=== PATIENT | female | born 1940 | race Caucasian/White ===

== ENCOUNTER 2018-11-05 08:09 | Emergency (ER) | payer MEDICARE, OTHER ==
[2018-11-05 08:30] VITALS: TEMP 97.3; O2SAT 95
--- NOTE | 2018-11-05 08:33 | ED.PDOC ---
History of Present Illness - General Chief Complaint: Upper Extremity Injury Stated Complaint: fell and hit elblow Time Seen by Provider: 11/05/18 08:26 Source: patient Exam Limitations: no limitations - History of Present Illness Initial Comments: Monie Arroyo 78 y/o female came to er stating got up last night to go to bathroom and as she was going out of her room tripped on a door stopper and fell to the carpeted floor landing on her shoulder right.Had dull pain and extending right elbow.DENIES any injuries to HEAD,NECK,CHEST,HIPS,LEGS. Occurred: yesterday - night Pain - Upper Extremity: moderate: Elbow, right Method of Injury: fell Improving Factors: rest Worsening Factors: movement Associated Symptoms: pain Allergies/Adverse Reactions: Allergies NO KNOWN ALLERGY Allergy (Unverified 05/05/14 02:46) Home Medications: Ambulatory Orders Promethazine Tab [Phenergan Tablet] 25 mg PO Q6H PRN #6 tab 05/05/14 ALPRAZolam [Xanax] 0.25 mg PO DAILY 11/05/18 Acetaminophen W/ Codeine [Tylenol W/ CODEINE #3] 1 ea PO Q8HR PRN #14 11/05/18 Atorvastatin Calcium [Lipitor] 20 mg PO DAILY 11/05/18 Clopidogrel Bisulfate 75 mg PO DAILY 11/05/18 Digoxin 0.125 mg PO DAILY 11/05/18 Levothyroxine Sodium [Synthroid] 100 mcg PO DAILY 11/05/18 Lisinopril 5 mg PO DAILY 11/05/18 Metformin HCl 500 mg PO DAILY 11/05/18 Metoprolol Tartrate 50 mg PO DAILY 11/05/18 Omeprazole 20 mg PO DAILY 11/05/18 Spironolactone 25 mg PO DAILY 11/05/18 Tramadol HCl 50 mg PO PRN PRN 11/05/18 Venlafaxine HCl [Venlafaxine HCl ER] 150 mg PO DAILY 11/05/18 Zolpidem Tartrate 5 mg PO DAILY 11/05/18 Review of Systems - Review of Systems Musculoskeletal: States: joint pain - right elbow All other Systems: Reviewed and Negative, No Change from Baseline Past Medical History (General) - Patient Medical History Hx Stroke: Yes Hx Cardiac Disorders: Yes Hx Hypertension: Yes Hx Thyroid Disease: Yes Hx Diabetes: Yes Hx Gastroesophageal Reflux: Yes Hx Cancer: No Surgical History: cholecystectomy, other - hysterectomy - Vaccination History Hx Tetanus, Diphtheria Vaccination: Yes Hx Influenza Vaccination: Yes Hx Pneumococcal Vaccination: Yes Immunizations Up to Date: Yes - Social History Hx Tobacco Use: No Hx Alcohol Use: Yes - twice a year - Female History Patient is a Female of Child Bearing Age (10 -59 yrs old): No Patient : No Family Medical History - Family History Mother Living Status: Cause of : chf Hx Family Congestive Heart Failure: Yes Hx Family Hypertension: Yes Hx Family Diabetes: Yes Physical Exam - Physical Exam General Appearance: Alert, Comfortable, No apparent distress Eyes, Ears, Nose, Throat Exam: normal ENT inspection Neck: non-tender, full range of motion, supple, normal inspection Cardiovascular/Respiratory: regular rate, rhythm, no M/R/G, normal peripheral pulses, no JVD, normal breath sounds Back Exam: no CVA tenderness, no vertebral tenderness Shoulder Exam: non-tender, no evidence of injury Elbow/Forearm Exam: bone tenderness - right elbow, limited ROM - painful right, soft tissue tenderness Wrist Exam: normal inspection, no evidence of injury, normal ROM Hand Exam: normal inspection, non-tender, no evidence of injury Neuro/Tendon: normal sensation, normal motor functions, normal tendon functions, responds to pain Mental Status: alert, oriented x 3 Skin Exam: normal color, warm/dry Progress - Progress Progress: 11/05/18 08:36 Vital Signs 11/05/18 08:24 Temperature 97.3 F L Pulse Rate [ 73 Left] Respiratory 20 Rate Blood Pressure 132/77 [Left Arm] O2 Sat by Pulse 95 Oximetry 11/05/18 09:13 Discuss x-ray result with patient and advised to recheck with primary Md. - EKG/XRAY/CT XRAY: elbow - right-radial head fractureslightly displaced Departure - Departure Clinical Impression: Fall Qualifiers: Encounter type: initial encounter Qualified Code(s): W19.XXXA - Unspecified fall, initial encounter Radial head fracture, closed Qualifiers: Encounter type: initial encounter Fracture alignment: displaced Laterality: right Qualified Code(s): S52.121A - Displaced fracture of head of right radius, initial encounter for closed fracture Time of Disposition: 09:15 Disposition: Discharge to Home or Self Care Condition: Good Departure Forms: ED Discharge - Pt. Copy, Patient Portal Self Enrollment Instructions: DI for Elbow Fracture Referrals: Kira Ceballos MD [Primary Care Provider] - 1-2 Weeks Prescriptions: Acetaminophen W/ Codeine [Tylenol W/ CODEINE #3] 1 ea PO Q8HR PRN #14 PRN Reason: Pain Home Medications: Ambulatory Orders Promethazine Tab [Phenergan Tablet] 25 mg PO Q6H PRN #6 tab 05/05/14 ALPRAZolam [Xanax] 0.25 mg PO DAILY 11/05/18 Acetaminophen W/ Codeine [Tylenol W/ CODEINE #3] 1 ea PO Q8HR PRN #14 11/05/18 Atorvastatin Calcium [Lipitor] 20 mg PO DAILY 11/05/18 Clopidogrel Bisulfate 75 mg PO DAILY 11/05/18 Digoxin 0.125 mg PO DAILY 11/05/18 Levothyroxine Sodium [Synthroid] 100 mcg PO DAILY 11/05/18 Lisinopril 5 mg PO DAILY 11/05/18 Metformin HCl 500 mg PO DAILY 11/05/18 Metoprolol Tartrate 50 mg PO DAILY 11/05/18 Omeprazole 20 mg PO DAILY 11/05/18 Spironolactone 25 mg PO DAILY 11/05/18 Tramadol HCl 50 mg PO PRN PRN 11/05/18 Venlafaxine HCl [Venlafaxine HCl ER] 150 mg PO DAILY 11/05/18 Zolpidem Tartrate 5 mg PO DAILY 11/05/18 Additional Instructions: Follow up with primary Md 07 Nov 2018 for recheck;Ice pack to affected area 15 minutes 3 x a day during waking hours only for 3 days.
--- NOTE | 2018-11-05 09:02 | RAD ---
EXAM: XR Right Elbow Complete, 3 or More Views CLINICAL HISTORY: 78 years old and is Female; fall/pain TECHNIQUE: Frontal, lateral and oblique views of the right elbow. COMPARISON: No relevant prior studies available. FINDINGS: Limitations: None. Bones/joints: There is an acute mildly depressed fracture of the radial head. There is a joint effusion. No dislocation. Soft tissues: Mild swelling noted over the olecranon. IMPRESSION: There is an acute mildly depressed fracture of the radial head. Electronically signed by: Queenie Tejada MD 11/05/2018 9:00 AM CDT
[2018-11-05 09:33] VITALS: BP 130/70
== END 2018-11-05 09:32 | disposition home or self-care (01) ==
LOC: ER 08:09
DX: S52.121A Displaced fracture of head of right radius, initial encounter for closed fracture (principal); I51.9 Heart disease, unspecified; I10 Essential (primary) hypertension; E07.9 Disorder of thyroid, unspecified; E11.9 Type 2 diabetes mellitus without complications; K21.9 Gastro-esophageal reflux disease without esophagitis; Z86.73 Personal history of transient ischemic attack (TIA), and cerebral infarction without residual deficits; Z79.84 Long term (current) use of oral hypoglycemic drugs; Z79.899 Other long term (current) drug therapy; W01.0XXA Fall on same level from slipping, tripping and stumbling without subsequent striking against object, initial encounter; Y92.9 Unspecified place or not applicable